=== PATIENT | male | born 1940 | race Caucasian/White ===

== ENCOUNTER 2023-11-22 14:58 | Emergency (ER) | payer MEDICARE, OTHER ==
[~2023-11-22] VITALS: Ht 167.6 cm; Wt 68.0 kg
[2023-11-22] MEDS ORDERED: CARV6.252 PO (15:10)
[2023-11-22] MEDS ORDERED: AZIL1TAB2 PO (15:10)
[2023-11-22] MEDS ORDERED: EMPA25TA PO (15:10)
[2023-11-22] MEDS ORDERED: METF-440 PO (15:10)
[2023-11-22] MEDS ORDERED: ATOR20TA PO (15:10)
[2023-11-22 15:37] LABS: CALCIUM 9.1 mg/dL (8.5-10.1); CARBON DIOXIDE 24 mmol/L (21-32); CHLORIDE 102 mmol/L (98-107); CREATININE 1.9 mg/dL (0.6-1.3); GLUCOSE 203 mg/dL (74-106); POTASSIUM 4.3 mmol/L (3.5-5.1); SODIUM SERUM 141 mmol/L (136-145); UREA NITROGEN, BLOOD 33 mg/dL (7-18)
[2023-11-22 15:38] LABS: BASOPHILS % (AUTO) 0.6 % (0.0-2.0); EOSINOPHILS # (AUTO) 0.1 K/uL (0.0-0.7); EOSINOPHILS % (AUTO) 1.1 % (0.0-7.0); HEMOGLOBIN 13.5 g/dL (12.5-16.3); LYMPHOCYTES # (AUTO) 1.1 K/uL (0.8-4.8); LYMPHOCYTES % (AUTO) 17.3 % (20.5-51.5); MEAN CORPUSCULAR HEMOGLOBIN 31.8 uug (23.8-33.4); MEAN CORPUSCULAR HGB CONC 34 g/dL (32.5-36.3); MEAN CORPUSCULAR VOLUME 94.3 fL (73.0-96.2); MONOCYTES # (AUTO) 0.4 K/uL (0.1-1.30); NEUTROPHILS # (AUTO) 4.7 K/uL (1.8-8.9); PLATELET COUNT (AUTO) 161 K/uL (152-348); RED BLOOD CELL COUNT(AUTO) 4.24 MIL/uL (4.06-5.63); RED CELL DISTRIBUTION WIDTH 12.5 % (12.1-16.2); WHITE BLOOD COUNT (AUTO) 6.3 K/uL (3.6-10.2)
[2023-11-22 15:41] LABS: ETHANOL < 3 MG/DL (0-10)
[2023-11-22 15:42] LABS: DIFFERENTIAL COMMENT 1
[2023-11-22 15:45] LABS: ALANINE AMINOTRANSFERASE 16 U/L (16-63); ALBUMIN 3.6 g/dL (3.4-5.0); ALKALINE PHOSPHATASE 48 U/L (50-136); ASPARTATE AMINOTRANSFERASE < 5 U/L (15-37); BILIRUBIN,DIRECT 0.1 mg/dL (0.0-0.2); BILIRUBIN,TOTAL 0.6 mg/dL (0.2-1.0); TOTAL PROTEIN, SERUM 7.3 g/dL (6.4-8.2)
[2023-11-22 15:52] LABS: ACETAMINOPHEN < 2.0 ug/mL (10-30)
[2023-11-22 16:42] VITALS: BP 112/78; O2SAT 97
== END 2023-11-22 16:44 | disposition home or self-care (01) ==
LOC: ER 15:01
DX: R55 Syncope and collapse (principal); E11.9 Type 2 diabetes mellitus without complications; Z79.899 Other long term (current) drug therapy
CPT/HCPCS: 80076; 80048; 83880; 85025; 85730; 84484; 36415; 93005; 71045; 70450; 99285; 80299; 80320; J7040; A4606; A4663; G0480